=== PATIENT | female | born 1965 | race Caucasian/White ===

== ENCOUNTER 2022-06-01 14:41 | Outpatient (CLI) | payer MEDICARE, SELFPAY ==
[2022-06-01 21:27] LABS: Albumin* 4.4 g/dL (3.3-5.0); Chloride* 104 mmol/L (96-114)
[2022-06-01 21:28] LABS: Potassium* 3.4 mmol/L (3.6-5.1); Sodium* 136 mmol/L (135-149)
[2022-06-01 21:30] LABS: Aspartate Amino Transferase* 29 U/L (12-35); Bilirubin Total* 0.9 mg/dL (0.1-1.5); Blood Urea Nitrogen* 17 mg/dL (7-30); Carbon Dioxide* 22 mmol/L (20-32); Cholesterol* 212 mg/dL (90-199); Creatinine* 0.6 mg/dL (0.5-1.5); Estimated Glomerular Filt Rate 105 ml/min
[2022-06-01 21:46] LABS: Alanine Aminotransferase* 15 U/L (4-35); Alkaline Phosphatase* 115 U/L (40-150); Calcium* 9.1 mg/dL (8.4-10.6); Glucose* 103 mg/dL (60-115); HDL Cholesterol* 41 mg/dL (>=50); LDL Cholesterol Calculated 131 mg/dL (<100); Triglycerides* 200 mg/dL (40-149)
== END 2022-06-01 14:42 | disposition home or self-care (01) ==
PROVIDERS: PCP Family Medicine; Visit Provider Family Medicine
DX: E78.00 Pure hypercholesterolemia, unspecified (principal); Z79.899 Other long term (current) drug therapy
CPT/HCPCS: 80053; 80061

== ENCOUNTER 2022-09-01 14:22 | Outpatient (CLI) | payer MEDICARE, SELFPAY ==
[2022-09-01 22:17] LABS: Albumin* 4.9 g/dL (3.3-5.0)
[2022-09-01 22:18] LABS: Chloride* 108 mmol/L (96-114); Potassium* 3.7 mmol/L (3.6-5.1); Sodium* 142 mmol/L (135-149)
[2022-09-01 22:20] LABS: Alanine Aminotransferase* 20 U/L (4-35); Alkaline Phosphatase* 99 U/L (40-150); Aspartate Amino Transferase* 23 U/L (12-35); Bilirubin Total* 1.2 mg/dL (0.1-1.5); Blood Urea Nitrogen* 16 mg/dL (7-30); Carbon Dioxide* 22 mmol/L (20-32); Cholesterol* 204 mg/dL (90-199); Creatinine* 0.7 mg/dL (0.5-1.5); Estimated Glomerular Filt Rate 101 ml/min; Total Protein* 7.5 g/dL (6.0-8.3)
[2022-09-01 22:21] LABS: Calcium* 9.7 mg/dL (8.4-10.6); Glucose* 86 mg/dL (60-115); HDL Cholesterol* 46 mg/dL (>=50); LDL Cholesterol Calculated 131 mg/dL (<100); Triglycerides* 135 mg/dL (40-149)
== END 2022-09-01 14:23 | disposition home or self-care (01) ==
PROVIDERS: PCP Family Medicine; Visit Provider Family Medicine
DX: E78.00 Pure hypercholesterolemia, unspecified (principal); R19.7 Diarrhea, unspecified; Z79.899 Other long term (current) drug therapy
CPT/HCPCS: 80053; 80061

== ENCOUNTER 2022-09-05 14:22 | Outpatient (CLI) | payer MEDICARE, SELFPAY ==
[2022-09-05 22:47] LABS: C.Difficile Negative (Negative); CDIFFEPI 027 PRESUMPTIVE NEGATIVE (Negative)
[2022-09-11 00:32] LABS: Ova and Parasite, Fecal Negative (Negative)
[2022-09-11 16:26] LABS: Cryptosporidium by PCR Not Detected; Cyclospora cayetanensis by PCR Not Detected; Dientamoeba fragilis by PCR Not Detected; Entamoeba histolytica by PCR Not Detected; Giardia by PCR Not Detected
== END 2022-09-05 14:23 | disposition home or self-care (01) ==
PROVIDERS: PCP Family Medicine; Visit Provider Family Medicine
DX: E78.00 Pure hypercholesterolemia, unspecified (principal); R19.7 Diarrhea, unspecified; Z79.899 Other long term (current) drug therapy
CPT/HCPCS: 87045; 87046; 87177; 87209; 87427; 87493; 87505

== ENCOUNTER 2022-10-19 10:58 | Outpatient (CLI) | payer MEDICARE, SELFPAY ==
[2022-10-19 23:33] LABS: Chlamydia DNA Amplified* NOT DETECTED (No Detected); GC DNA Amplified* NOT DETECTED (No Detected)
== END 2022-10-19 10:59 | disposition home or self-care (01) ==
PROVIDERS: PCP Family Medicine; Visit Provider Family Medicine
DX: R30.0 Dysuria (principal); N76.0 Acute vaginitis
CPT/HCPCS: 87491; 87591

== ENCOUNTER 2022-11-23 11:50 | Outpatient (CLI) | payer MEDICARE, OTHER, SELFPAY | END 2022-11-23 11:51 | disposition home or self-care (01) | LOC: NFLDREF 11-30 14:59 | PROVIDERS: PCP Family Medicine; Referring Provider Family Medicine; Visit Provider Family Medicine | DX: N39.0 Urinary tract infection, site not specified (principal); J40 Bronchitis, not specified as acute or chronic; R07.9 Chest pain, unspecified; I49.9 Cardiac arrhythmia, unspecified | CPT/HCPCS: 87086 ==

== ENCOUNTER 2023-03-19 08:32 | Outpatient (CLI) | payer OTHER, SELFPAY | END 2023-03-19 08:33 | disposition home or self-care (01) | PROVIDERS: PCP Family Medicine; Visit Provider Family Medicine | DX: I10 Essential (primary) hypertension (principal); E78.00 Pure hypercholesterolemia, unspecified; Z79.899 Other long term (current) drug therapy | CPT/HCPCS: 80053; 80061 ==

== ENCOUNTER 2023-08-24 10:20 | Outpatient (CLI) | payer OTHER, SELFPAY | END 2023-08-24 10:21 | disposition home or self-care (01) | PROVIDERS: PCP Family Medicine; Visit Provider Family Medicine | DX: E78.00 Pure hypercholesterolemia, unspecified (principal); G62.9 Polyneuropathy, unspecified; I10 Essential (primary) hypertension; R60.9 Edema, unspecified; Z79.899 Other long term (current) drug therapy | CPT/HCPCS: 80061; 80076; 82306; 82607; 83735; 84443 ==